=== PATIENT | male | born 1990 | race Two or more races ===

== ENCOUNTER 2017-09-29 08:44 | Emergency (ER) | payer BC ==
[~2017-09-29] VITALS: Ht 177.8 cm; Wt 113.4 kg
[2017-09-29 08:49] VITALS: BP 144/91; Ht 177.8 cm; Wt 113.4 kg
== END 2017-09-29 10:12 | disposition home or self-care (01) ==
LOC: ED 08:44
DX: S82.402A Unspecified fracture of shaft of left fibula, initial encounter for closed fracture (principal); X50.1XXA Overexertion from prolonged static or awkward postures, initial encounter; Y93.89 Activity, other specified; Y92.89 Other specified places as the place of occurrence of the external cause; Y99.8 Other external cause status